=== PATIENT | female | born 1965 | race Caucasian/White ===

== ENCOUNTER → 2017-04-27 13:37 | Outpatient (CLI) | payer MEDICARE, SELFPAY ==
--- NOTE | 2017-04-27 13:53 | XR_ITS ---
XR wrist LT 2V HISTORY: ITS.REASON: WRIST PAIN ORDERING PHYSICIAN: Gaye Wick PATIENT AGE: 51 years COMPARISON: None FINDINGS: AP and lateral views of the left wrist show no obvious fracture or dislocation. There are some minimal osteoarthritic changes of the first metacarpal carpal joint. No lytic changes apparent. IMPRESSION: Minimal osteoarthritic changes first metacarpal carpal joint otherwise negative
== END ==
PROVIDERS: PCP Emergency Medicine; Visit Provider Physical Medicine & Rehabilitation
DX: M25.532 Pain in left wrist (principal)
CPT/HCPCS: 73100

== ENCOUNTER 2017-05-12 11:25 | Outpatient (RCR) | payer MEDICARE, SELFPAY | END 2017-05-12 11:30 | disposition home or self-care (01) | LOC: OT 11:25 | PROVIDERS: Visit Provider Orthopaedic Surgery | DX: G56.03 Carpal tunnel syndrome, bilateral upper limbs (principal) | CPT/HCPCS: 97760 ==

== ENCOUNTER → 2017-06-13 08:07 | Outpatient (POV) | payer MEDICARE, SELFPAY | PROVIDERS: Family Provider Emergency Medicine; PCP Emergency Medicine; Visit Provider Specialist | DX: M79.642 Pain in left hand (principal); M79.641 Pain in right hand | CPT/HCPCS: 95886; 95910 ==

== ENCOUNTER → 2017-12-02 10:08 | Outpatient (CLI) | payer MEDICARE, SELFPAY ==
[2017-12-02 15:19] LABS: Amphetamine/Metha Screen,Urine Negative ng/mL (<1000); Barbiturates Screen,Urine Positive ng/mL (<200); Benzodiazepines Screen,Urine Negative ng/mL (<200); Cannabinoid Screen,Urine Negative ng/mL (<50); Cocaine Screen,Urine Negative ng/mL (<300); Methadone Screen,Urine Negative ng/mL (<300); Opiate Screen,Urine Positive ng/mL (<300); Phencyclidine Screen,Urine Negative ng/mL (<25)
== END ==
PROVIDERS: Visit Provider Nurse Practitioner Family
DX: Z79.899 Other long term (current) drug therapy (principal)
CPT/HCPCS: 80305

== ENCOUNTER → 2017-12-06 13:05 | Outpatient (CLI) | payer MEDICARE, SELFPAY ==
--- NOTE | 2017-12-06 13:08 | XR_ITS ---
EXAM: XR lumbar spine 2-3V HISTORY: Low back pain ITS.REASON: pain ORDERING PHYSICIAN: Angeli Malik PATIENT AGE: 52 years COMPARISON: None FINDINGS: Normal alignment. No fracture or dislocation. No lytic or blastic change. Minimal endplate hypertrophic changes are present at L2 L3 L4 and L5 with degenerative disc disease noted at L4-L5 and L5-S1 along with facet arthritic changes at L4-5 and L5-S1. There is minimal lumbar curvature convex left and mild sclerosis of left SI joint superiorly IMPRESSION: Lumbar spondylosis with degenerative disc disease and facet arthritic change
== END ==
PROVIDERS: PCP Emergency Medicine; Visit Provider Nurse Practitioner Family
DX: M54.42 Lumbago with sciatica, left side (principal)
CPT/HCPCS: 72100

== ENCOUNTER → 2017-12-16 14:14 | Outpatient (CLI) | payer MEDICARE, SELFPAY ==
--- NOTE | 2017-12-16 14:16 | MR_ITS ---
MR lumbar spine wo con, MR 3-d myelogram/MRCP Ordering Physician: Angeli Malik Patient Age: 52 years: Female HISTORY: ITS.REASON: back pain Bilateral leg pain. Left leg worse. two previous discectomies 2015 2016. TECHNIQUE: MRI lumbar spine without contrast as ordered. No IV contrast utilized in this post discectomy patient Sagittal STIR, T1, T2, axial T1 and T2. On 1.5T Siemens wide bore MRI. 3-D MR myelogram image set obtained & performed on MRI workstation. Additional sagittal thin section T2 weighted dataset obtained from this latter acquisition as well (---76 CPT) COMPARISON :Prior MRI June 10, 2016 & January 2015 FINDINGS: Vertebral bodies appear intact.. There is normal alignment. The spinal cord ends at the L1 level. Images begins at T11.. T11-T12: Unremarkable. L1-2. Disc maintained. Mild facet hypertrophy. L2-L3: Disc desiccation with mild diffuse bulging disc along with facet and ligamentumhypertrophy.. Bilateral foraminal encroachment: moderate on right and mild to the left. Mild narrowing of central canal-facet hypertrophy most notable indenting right posterior aspect of the thecal sac more so than left.. L3-L4: Mild /moderate diffuse disc bulge with disc bulge most pronounced towards right foramen. Facet and ligamentum flavum hypertrophy . Moderate Right foraminal narrowing/& encroachment, more so than the mild left left foraminal narrowing. Borderline/mild central canal stenosis. L4-5: Disc space narrowing. Mild diffuse disc bulge along with moderate facet and ligamentum hypertrophyWhich narrow the thecal sac posteriorly.. Correlation features yields borderline/mild central canal stenosis &bilateral lateral recess narrowing. . . L5-S1: Presume interval discectomy to the left at L5/S1. The Previous prominent focal disc herniation is no longer evident.. There is still some posterior endplate hypertrophy encroach upon the left neural foramen along with minimal residual disc bulge to the left , but the major focal disc protrusion/herniation is been removed.. Mild residual encroachment upon the right foramen is seen on sagittal images due to the above features. Would also note that there is now post discectomy disc space narrowing L5/S1--this is most pronounced to the left & is associated with notable reactive endplate changes at inferior L5 vertebra & superior S1, about the narrowed disc.. At L5 this increased bone signal extends back to the left pedicle, sagittal image 14. Cortex remains well maintained & I see no additional features. Additional soft tissue density seen here to the left recess, left paracentral region which appear to effaces the left anterior/lateral aspect thecal sac.-Somewhat similar similar to the 2017 MR exam.. ... Presumably this primarily reflects post discectomy epidural fibrosis, but postcontrast imaging would be required to confirm such. There does appear to be additional facet hypertrophy adding to the density here-both of these features best seen on axial image 40. The facet hypertrophy also slightly encroaches upon the left recess & entry of left foramen superiorly, sagittal slice 13.. (. If left S1 or S2 particular symptoms persist follow-up postcontrast imaging may be of benefit to further evaluate) . Of finally note mild dilatation along with possible scant fluid about the left S1 nerve root as it passes towards and into the foramen. Nonspecific but seen on axial finally images 3-D MR myelogram shows a similar pattern to previous 2017 study. There is the broad area of indentation upon the left aspect of thecal sac beginning at L5/S1 and continuing up to the L4/5 level. At L3-4 and L2/3 there is indentation upon the thecal sac more evident on right, due to the posterior element hypertrophy. IMPRESSION: 1.. L5/S1.
== END ==
PROVIDERS: PCP Emergency Medicine; Visit Provider Nurse Practitioner Family
DX: M54.5 Low back pain (principal)
CPT/HCPCS: 72148; 76376

== ENCOUNTER → 2018-07-26 14:02 | Outpatient (CLI) | payer MEDICARE, SELFPAY ==
--- NOTE | 2018-07-26 14:06 | CT_ITS ---
CT Temporal bone Without INDICATION: ITS.REASON: CENTRAL PERFORATION OF TYMPANIC MEMBRANE OF RT EAR ORDERING PHYSICIAN: Haven Fox MD PATIENT AGE: 52 years COMPARISON: None TECHNIQUE: Thin section axial images are obtained without contrast. Sagittal and coronal reformatted images are reviewed as well. All CT scans at the facility use one or more dose reduction, viz: automated exposure control, ma/kV adjustment per patient size (including targeted exams where dose is matched to indication, i.e. head), or iterative reconstruction technique. FINDINGS: There is opacification of the right mastoid sinus with some sclerosis of the mastoid bony septa consistent with chronic mastoiditis. There is some increased density in the epitympanic and on the right. There is irregularity of the bony cortex of the inferior aspect of the mastoid sinuses which is inferior to the external auditory canal. Has the patient had prior surgery? If not then, osteomyelitis of the mastoid region here is a consideration. This cortical irregularity extends anterior to the temporomandibular condylar fossa. The temporomandibular joint space is shallow on the right. There are postsurgical changes of the right mandibular condyle and flattening of the right ventricular condyle head. There is widening of the temporomandibular joint space. There is some increased soft tissue density in the epitympanic region however, the scutum does not appear eroded. The middle ear ossicles appear intact. There is an air-fluid level in left maxillary sinus. There is been prior right submandibular surgery. The mandible is incompletely imaged on the right. IMPRESSION: 1. The findings are compatible with chronic right-sided mastoiditis. There is cortical irregularity of the petrous bone in the right mastoid region inferior to the external auditory canal. If there has not been prior surgery in this region then, chronic osteomyelitis is a consideration. 2. Partial epitympanic opacification without evidence of scutal erosion. 3. Postsurgical changes of the right mandible with shallow right TMJ fossa and flattening of the right mandibular condyle
== END ==
PROVIDERS: PCP Emergency Medicine; Visit Provider Otolaryngology
DX: H72.01 Central perforation of tympanic membrane, right ear (principal)
CPT/HCPCS: 70480

== ENCOUNTER → 2019-04-20 13:49 | Outpatient (CLI) | payer MEDICARE, SELFPAY ==
[2019-04-20 14:03] LABS: Basophils # 0.1 K/mm3 (0-0.2); Basophils % 0.6 % (0.1-2.0); Eosinophils # 0.1 K/mm3 (0.0-0.4); Eosinophils % 1.1 % (0.1-12.0); Hematocrit 37.7 % (37.0-47.0); Hemoglobin 12.2 g/dL (12.2-16.2); Lymphocytes # 1.1 K/mm3 (0.7-4.5); Lymphocytes % 14.5 % (10-50); Mean Corpuscular HGB Conc 32.3 g/dL (31.8-35.4); Mean Corpuscular Volume 102.4 fl (81-99); Monocytes # 0.6 K/mm3 (0.1-1.0); Monocytes % 7.3 % (1.7-9.3); Neutrophils # 5.8 K/mm3 (1.8-7.8); Neutrophils % 76.5 % (37.0-80.0); Platelet Count 316 K/mm3 (142-424); Red Blood Count 3.68 M/mm3 (4.20-5.40); Red Cell Distribution Width 13.1 % (11.5-17.5); White Blood Count 7.5 K/mm3 (4.8-10.8)
[2019-04-20 14:08] LABS: Alanine Aminotransferase 16 U/L (12-78); Albumin Level 4.3 g/dl (3.5-5.0); Albumin/Globulin Ratio 1.5 (1.1-1.8); Alkaline Phosphatase 62 U/L (38-126); Anion Gap 11.2 mEq/L (5-15); Aspartate Amino Transferase 30 U/L (14-36); Bilirubin,Total 0.2 mg/dl (0.2-1.3); Blood Urea Nitrogen 20 mg/dl (7-17); Calcium 10.2 mg/dl (8.4-10.2); Carbon Dioxide 26 mmol/L (22.0-30.0); Chloride 101 mmol/L (98-107); Chol/HDL Ratio 1.7 (1-3.5); Cholesterol 180 mg/dl (140-200); Estimated Glomerular Filt Rate 58 ml/min (>60); GFR (African American) 70 ML/MIN (>60); Globulin 2.9 g/dL (1.3-3.2); Glucose 95 mg/dl (74-100); HDL Cholesterol 106 mg/dl (40-60); Potassium 5.2 mmoL/L (3.5-5.1); Sodium 133 mmol/L (136-145); Total Protein,Serum 7.2 g/dl (6.3-8.2); Triglycerides 68 mg/dl (30-150); VLDL Cholesterol 14 mg/dL (0-40)
[2019-04-20 14:20] LABS: Direct LDL Cholesterol 72.51 mg/dL (100-129)
[2019-04-20 14:27] LABS: Free T4 (Free Thyroxine) 0.93 ng/dl (0.78-2.19)
[2019-04-20 14:41] LABS: Thyroid Stimulating Hormone 1.95 uIU/mL (0.465-4.68)
== END ==
PROVIDERS: Visit Provider Emergency Medicine
DX: R53.83 Other fatigue (principal); E03.9 Hypothyroidism, unspecified; E55.9 Vitamin D deficiency, unspecified
CPT/HCPCS: 80053; 80061; 82652; 84439; 84443; 85025

== ENCOUNTER → 2019-05-11 13:44 | Outpatient (CLI) | payer MEDICARE, SELFPAY ==
[2019-05-11 14:25] LABS: Blood Urea Nitrogen 19 mg/dl (7-17); Carbon Dioxide 23 mmol/L (22.0-30.0); Chloride 94 mmol/L (98-107); Estimated Glomerular Filt Rate 74 ml/min (>60); GFR (African American) 90 ML/MIN (>60); Glucose 74 mg/dl (74-100); Sodium 127 mmol/L (136-145)
[2019-05-12 09:52] LABS: Folate 7.2 ng/mL (>3.0); Vitamin B12 >2000 pg/mL (232-1245)
== END ==
PROVIDERS: Visit Provider Physician Assistant
DX: E87.1 Hypo-osmolality and hyponatremia (principal); E87.5 Hyperkalemia; R71.8 Other abnormality of red blood cells
CPT/HCPCS: 80048; 82607; 82746

== ENCOUNTER 2019-09-27 09:58 | Emergency (ER) | payer MEDICARE, SELFPAY ==
[2019-09-27 10:10] VITALS: BP 137/100; PULSE 89; RESP 18; TEMP 36.8; O2SAT 99; BMI 24.2
--- NOTE | 2019-09-27 10:17 | XR_ITS ---
PROCEDURE: XR HAND LT MIN 3V CLINICAL INDICATION: fall COMPARISON: No exams were available for comparison FINDINGS: No fracture or dislocation. No lytic or blastic change. There is normal mineralization. There are mild osteoarthritic changes 1st metacarpal-carpal joint with mild lateral subluxation of the 1st metacarpal Other findings:None. IMPRESSION: No acute findings. Dictated b Farhan Guidry MD 09/27/2019 12:35 Farhan Guidry MD in [place] 09/27/2019 12:35
[2019-09-27 10:20] VITALS: BP 137/100; PULSE 86; O2SAT 97
--- NOTE | 2019-09-27 10:28 | HMH.EDFALL ---
ED Disposition Clinical Impression: Sprain of hand, left Disposition: Home, Self-Care Condition on Discharge: Fair Instructions: How to Prevent Falls Additional Instructions: reviewed x-ray of the hand and do not see a fracture. Most likely You have a sprain. Plan is to provide a splint and advice rest ice elevation and anti-inflammatory medications. Please follow up with orthopedics if not better Prescriptions: Ibuprofen [Motrin 600mg Tablet] 600 mg PO Q6HP PRN #20 tab PRN Reason: Mild To Moderate Pain Transmission Status: Pending to [facility] Diclofenac Sodium [Voltaren 100gm Topical Gel] 1 applicatio TP Q4-6H PRN #100 gm PRN Reason: Moderate Pain Transmission Status: Pending to [facility] Referrals: Tim Arias MD [Primary Care Provider] - - Critical Care Critical Care Time: No Attestation: On , the high probability of a clinically significant, sudden or life threatening deterioration of the following system(s) required my full and direct attention, intervention and personal management. The time I documented below is in addition to time spent performing reported procedures but includes the following listed in this critical care notation. Medical Decision Making - Medical Records Medical records reviewed: Yes: I reviewed the patient's medical records. MR Comment: Patient is a 53-year-old female with the complaint that she fell couple of days ago she was going up a ramp and slipped and landed on her lefthand does have swelling in the hand she did keep it iced and elevated and hence the swelling is down she says she also hit her knee and has a bruise on the knee but that appears to be healing although she is not up-to-date on tetanus. I reviewed her x-ray and do not see a fracture. Most likely She has a sprain. Plan is to provide a splint and advice rest ice elevation and anti-inflammatory medications - [place] Inquiry Pt receiving controlled substance: No Vital Signs: 09/27/19 10:10 09/27/19 10:20 09/27/19 11:00 Temperature 98.3 F Temperature Source Oral Pulse Rate [Radial] 89 86 87 Respiratory Rate 18 Blood Pressure [Right Arm] 137/100 H 137/100 H 146/98 H Blood Pressure Mean [Right Arm] 112 112 114 Blood Pressure Source [Right Arm] Automatic Cuff Automatic Cuff Blood Pressure Position [Right Arm] Sitting Sitting Sitting 02 Sat by Pulse Oximetry 99 97 97 Oxygen Delivery Method Room Air Room Air Room Air Orders (Tests/Meds): ED MEDICATIONS Discontinued Medications Generic Name Dose Route Start Last Admin Trade Name Umer PRN Reason Stop Dose Admin Tetanus/Diphtheria Toxoids 0.5 ml 09/27/19 10:29 09/27/19 10:48 Tenivac 0.5ml Syringe IM 09/27/19 10:30 0.5 ml .ONCE ONE Administration ORDERS Category Date Time Status XR hand LT min 3V Stat Exams 09/27/19 10:17 Taken Fall HPI - General Chief Complaint: Fall Stated Complaint: ao fell and hurt left arm and wrist Time Seen by Provider: 09/27/19 10:23 Mode of Arrival: Ambulatory Source of Information: Patient, Spouse Limitations: No Limitations Description of Symptoms (Recalled from ER Triage Doc. by RN): Fell Tuesday. Left hand swelling, left knee pain. - History of Present Illness HPI Narrative: Patient is a 53-year-old female with the complaint that she fell couple of days ago she was going up a ramp and slipped and landed on her lefthand does have swelling in the hand she did keep it iced and elevated and hence the swelling is down she says she also hit her knee and has a bruise on the knee but that appears to be healing although she is not up-to-date on tetanus MD complaint: fall Onset (ago): day(s) Fall from: walking Fall witnessed: no Place fall occurred: home Loss of consciousness: none Prolonged down time: no Symptoms prior to fall: none Location of injury: other (left hand) Location of injury - extremities: Left: hand Severity: moderate Severity scale (
[2019-09-27 11:00] VITALS: BP 146/98; PULSE 87; O2SAT 97
--- NOTE | 2019-09-27 11:19 | PC.NURSE ---
back from xray
[2019-09-27 12:55] VITALS: BP 115/74; PULSE 78; RESP 16; TEMP 36.6; O2SAT 98
== END 2019-09-27 12:58 | disposition home or self-care (01) ==
PROVIDERS: Emergency Provider Emergency Medicine; PCP Emergency Medicine
DX: S63.502A Unspecified sprain of left wrist, initial encounter (principal); S61.412A Laceration without foreign body of left hand, initial encounter; W01.0XXA Fall on same level from slipping, tripping and stumbling without subsequent striking against object, initial encounter; Y92.89 Other specified places as the place of occurrence of the external cause; Z23 Encounter for immunization; E03.9 Hypothyroidism, unspecified; M79.7 Fibromyalgia; F41.8 Other specified anxiety disorders; E78.5 Hyperlipidemia, unspecified; I10 Essential (primary) hypertension; Z87.442 Personal history of urinary calculi; F17.210 Nicotine dependence, cigarettes, uncomplicated; Z88.1 Allergy status to other antibiotic agents; Z88.8 Allergy status to other drugs, medicaments and biological substances; Z79.899 Other long term (current) drug therapy
CPT/HCPCS: 29125; 73130; 90471; 90714; 99282; 99283

== ENCOUNTER → 2019-11-14 13:08 | Outpatient (CLI) | payer MEDICARE, SELFPAY ==
[2019-11-15 15:06] LABS: Covid-19 Nasal PCR Sendout Lex Not Detected
== END ==
PROVIDERS: PCP Emergency Medicine; Visit Provider Nurse Practitioner Family
DX: Z03.818 Encounter for observation for suspected exposure to other biological agents ruled out (principal)
CPT/HCPCS: U0004

== ENCOUNTER → 2019-12-06 11:30 | Outpatient (CLI) | payer MEDICARE, SELFPAY ==
[2019-12-06 13:34] LABS: Blood Urea Nitrogen 19 mg/dl (7-17); Estimated Glomerular Filt Rate 74 ml/min (>60); GFR (African American) 90 ML/MIN (>60)
== END ==
PROVIDERS: Visit Provider Emergency Medicine
DX: Z01.818 Encounter for other preprocedural examination (principal)
CPT/HCPCS: 36415; 82565; 84520

== ENCOUNTER → 2019-12-07 10:34 | Outpatient (CLI) | payer MEDICARE, SELFPAY ==
--- NOTE | 2019-12-07 10:35 | CT_ITS ---
PROCEDURE: CT SOFT TISSUE NECK W CON CLINICAL HISTORY: dysphonia Prior salivary gland surgery COMPARISON: CT NECKWO CT SOFT TISSUE NECK W/O CONT from 04/02/2013 TECHNIQUE: Oral Contrast: None IV Contrast: 75 mL Optiray 350 Axial images obtained with sagittal and coronal reformats. All CT scans at the facility use one or more dose reduction, viz: automated exposure control, ma/kV adjustment per patient size (including targeted exams where dose is matched to indication, i.e. head), or iterative reconstruction technique. FINDINGS: There is mucosal thickening of the ethmoid sinuses on the left. There is an air-fluid level in the both maxillary sinuses with mild mucosal thickening of the left maxillary sinus. The orbits have an unremarkable appearance. There is deformity of the body of the mandible and angle of the mandible on the right with multiple cortical screws in a bone plate at the anterior aspect of the body of the mandibular ramus on the right with what appears to represent a bone graft at the body of the mandible. This has a similar appearance on the previous exam. Prominent fatty tissue is present in the subcutaneous region in the right mandibular area as before with some surgical scarring noted. There are small nodes in the neck on both sides. No dominant adenopathy. The right parotid and right submandibular gland have been removed. The right sternocleidomastoid is smaller than the left side and could be due to partial resection. Upper thoracic images show centrilobular emphysema. Atherosclerotic changes are present involving the carotids on both sides The nasopharynx, uvula, hypopharynx oropharynx and epiglottis and glottic region and subglottic region have an unremarkable appearance. Unremarkable appearing thyroid gland. IMPRESSION: 1. Extensive postsurgical changes the on the right with prior removal of the parotid and submandibular gland and partial resection of the sternocleidomastoid as well as the right mandibular body resection. These findings are stable compared to the previous exam. 2. Overall no significant change with no acute finding. Previously noted fluid collection anterior to the left sternocleidomastoid is no longer apparent. No abscess evident. No adenopathy. Dictated by: Farhan Guidry MD 12/08/2019 09:12 Farhan Guidry MD in [place] 12/08/2019 09:12
== END ==
PROVIDERS: PCP Emergency Medicine; Visit Provider Emergency Medicine
DX: R49.0 Dysphonia (principal)
CPT/HCPCS: 70491; Q9967

== ENCOUNTER → 2020-05-15 08:57 | Outpatient (CLI) | payer MEDICARE, SELFPAY ==
--- NOTE | 2020-05-15 09:02 | FL_ITS ---
PROCEDURE: FL UPPER GI W AIR CLINICAL INDICATION: HOARSENESS COMPARISON: No exams were available for comparison TECHNIQUE: FLUOROSCOPY TIME : 1 minutes and 42 seconds FINDINGS: There was mild tracheal aspiration. The patient did have a cough reflux. Surgical clips are present in the thyroid bed. The esophagus has an unremarkable appearance. No annular constricting lesions, filling defects, or hiatal hernia is evident. The stomach and duodenum have an unremarkable appearance. No ulcer or mass evident. Prior lumbar surgery with inter pedicular screws at L5-S1. IMPRESSION: 1. Mild tracheal aspiration. 2. Otherwise unremarkable upper GI Dictated by: Farhan Guidry MD 05/15/2020 14:35 Farhan Guidry MD in [place] 05/15/2020 14:35
== END ==
PROVIDERS: PCP Emergency Medicine; Visit Provider Surgery
DX: R49.0 Dysphonia (principal)
CPT/HCPCS: 74246

== ENCOUNTER → 2020-06-24 11:08 | Outpatient (POV) | payer MEDICARE, SELFPAY | PROVIDERS: Visit Provider Otolaryngology | DX: Z00.00 Encounter for general adult medical examination without abnormal findings (principal) ==

== ENCOUNTER → 2020-09-02 14:01 | Outpatient (CLI) | payer MEDICARE, SELFPAY ==
[2020-09-02 14:46] LABS: Chloride 88 mmol/L (98-107); Potassium 5.1 mmoL/L (3.5-5.1); Sodium 123 mmol/L (136-145)
[2020-09-02 14:47] LABS: 25-OH Vitamin D, Total 35.7 ng/mL (30-100)
[2020-09-02 14:48] LABS: Blood Urea Nitrogen 12 mg/dl (7-17); Estimated Glomerular Filt Rate 74 ml/min (>60); GFR (African American) 90 ML/MIN (>60)
[2020-09-02 14:49] LABS: Alanine Aminotransferase 17 U/L (12-78); Albumin Level 4.3 g/dl (3.5-5.0); Albumin/Globulin Ratio 1.5 (1.1-1.8); Alkaline Phosphatase 81 U/L (38-126); Anion Gap 17.1 mEq/L (5-15); Aspartate Amino Transferase 33 U/L (14-36); Bilirubin,Total 0.4 mg/dl (0.2-1.3); Calcium 9.5 mg/dl (8.4-10.2); Carbon Dioxide 23 mmol/L (22.0-30.0); Chol/HDL Ratio 2.2 (1-3.5); Cholesterol 193 mg/dl (140-200); Globulin 2.8 g/dL (1.3-3.2); Glucose 91 mg/dl (74-100); HDL Cholesterol 89 mg/dl (40-60); Total Protein,Serum 7.1 g/dl (6.3-8.2); Triglycerides 114 mg/dl (30-150); VLDL Cholesterol 23 mg/dL (0-40)
[2020-09-02 14:59] LABS: Basophils % 0.5 % (0.1-2.0); Eosinophils # 0.2 K/mm3 (0.0-0.4); Hematocrit 37.8 % (37.0-47.0); Hemoglobin 12.5 g/dL (12.2-16.2); Lymphocytes # 1.4 K/mm3 (0.7-4.5); Lymphocytes % 16.4 % (10-50); Mean Corpuscular HGB Conc 33.1 g/dL (31.8-35.4); Mean Corpuscular Hemoglobin 31.2 pg (27.0-31.2); Mean Corpuscular Volume 94.5 fl (81-99); Mean Platelet Volume 7.8 fl (7.4-10.4); Monocytes # 0.7 K/mm3 (0.1-1.0); Monocytes % 8.1 % (1.7-9.3); Neutrophils # 6.1 K/mm3 (1.8-7.8); Platelet Count 354 K/mm3 (142-424); Red Blood Count 4.01 M/mm3 (4.20-5.40); Red Cell Distribution Width 12.3 % (11.5-17.5); White Blood Count 8.3 K/mm3 (4.8-10.8)
[2020-09-02 15:01] LABS: Direct LDL Cholesterol 80.82 mg/dL (100-129)
[2020-09-02 15:08] LABS: T4 (Thyroxine) 5.7 ug/dl (5.53-11.0)
[2020-09-02 15:35] LABS: Thyroid Stimulating Hormone 1.94 uIU/mL (0.465-4.68)
== END ==
PROVIDERS: Visit Provider Nurse Practitioner Family
DX: I10 Essential (primary) hypertension (principal); E03.9 Hypothyroidism, unspecified; E55.9 Vitamin D deficiency, unspecified
CPT/HCPCS: 80053; 80061; 82306; 84436; 84443; 85025

== ENCOUNTER → 2020-11-14 14:02 | Outpatient (CLI) | payer MEDICARE, SELFPAY ==
[2020-11-14 14:04] LABS: Adenovirus,PCR Not Detected (NotDetected); Bordetella Pertussis Not Detected (NotDetected); Chlamydophila Pneumoniae, PCR Not Detected (NotDetected); Coronavirus 19, PCR Not Detected (NotDetected); Coronavirus 229E Not Detected (NotDetected); Coronavirus NL63 Not Detected (NotDetected); Coronavirus OC43 Not Detected (NotDetected); Coronovirus HKU1,PCR Not Detected (NotDetected); Human Metapneumovirus Not Detected (NotDetected); Influenza A, PCR Not Detected (NotDetected); Influenza AH1, 2009 Not Detected (NotDetected); Influenza AH1, PCR Not Detected (NotDetected); Influenza AH3,PCR Not Detected (NotDetected); Influenza B, PCR Not Detected (NotDetected); Mycoplasma Pneumoniae, PCR Not Detected (NotDetected); Parainfluenza 1, PCR Not Detected (NotDetected); Parainfluenza 2, PCR Not Detected (NotDetected); Parainfluenza 3, PCR Not Detected (NotDetected); Parainfluenza 4, PCR Not Detected (NotDetected); Respiratory Syncytial Virus Not Detected (NotDetected); Rhinovirus/Enterovirus Not Detected (NotDetected)
== END ==
PROVIDERS: Visit Provider Family Medicine
DX: J02.9 Acute pharyngitis, unspecified (principal); R09.89 Other specified symptoms and signs involving the circulatory and respiratory systems; Z20.822 Contact with and (suspected) exposure to COVID-19; R05 Cough; R50.9 Fever, unspecified
CPT/HCPCS: 87486; 87581; 87632; 87798; C9803; U0003; U0005

== ENCOUNTER → 2021-02-18 17:20 | Outpatient (CLI) | payer MEDICARE, SELFPAY ==
[2021-02-18 17:22] LABS: Adenovirus,PCR Not Detected (NotDetected); Bordetella Pertussis Not Detected (NotDetected); Chlamydophila Pneumoniae, PCR Not Detected (NotDetected); Coronavirus 19, PCR Not Detected (NotDetected); Coronavirus 229E Not Detected (NotDetected); Coronavirus NL63 Not Detected (NotDetected); Coronavirus OC43 Not Detected (NotDetected); Coronovirus HKU1,PCR Not Detected (NotDetected); Human Metapneumovirus Not Detected (NotDetected); Influenza A, PCR Not Detected (NotDetected); Influenza AH1, 2009 Not Detected (NotDetected); Influenza AH1, PCR Not Detected (NotDetected); Influenza AH3,PCR Not Detected (NotDetected); Influenza B, PCR Not Detected (NotDetected); Mycoplasma Pneumoniae, PCR Not Detected (NotDetected); Parainfluenza 1, PCR Not Detected (NotDetected); Parainfluenza 2, PCR Not Detected (NotDetected); Parainfluenza 3, PCR Not Detected (NotDetected); Parainfluenza 4, PCR Not Detected (NotDetected); Respiratory Syncytial Virus Not Detected (NotDetected); Rhinovirus/Enterovirus Not Detected (NotDetected)
== END ==
PROVIDERS: Visit Provider Nurse Practitioner Family
DX: R05.9 Cough, unspecified (principal); Z20.822 Contact with and (suspected) exposure to COVID-19; R09.89 Other specified symptoms and signs involving the circulatory and respiratory systems
CPT/HCPCS: 87581; 87632; 87798; C9803; U0003; U0005

== ENCOUNTER → 2022-01-05 09:00 | Outpatient (CLI) | payer MEDICARE, SELFPAY ==
[2022-01-05 20:09] LABS: Basophils # 0.1 K/mm3 (0-0.2); Basophils % 0.8 % (0.1-2.0); Eosinophils % 0.1 % (0.1-12.0); Hematocrit 37.5 % (37.0-47.0); Hemoglobin 11.9 g/dL (12.2-16.2); Lymphocytes # 3.7 K/mm3 (0.7-4.5); Lymphocytes % 20.6 % (10-50); Mean Corpuscular HGB Conc 31.7 g/dL (31.8-35.4); Mean Corpuscular Hemoglobin 28.3 pg (27.0-31.2); Mean Corpuscular Volume 89.1 fl (81-99); Mean Platelet Volume 9.2 fl (7.4-10.4); Monocytes % 5.8 % (1.7-9.3); Neutrophils # 12.9 K/mm3 (1.8-7.8); Neutrophils % 72.7 % (37.0-80.0); Platelet Count 620 K/mm3 (142-424); Red Cell Distribution Width 14.9 % (11.5-17.5); White Blood Count 17.8 K/mm3 (4.8-10.8)
[2022-01-05 20:11] LABS: MANUAL DIFFERENTIAL MANUAL DIFFERENTIAL (MANUAL DIFF)
[2022-01-05 20:15] LABS: Alanine Aminotransferase 24 U/L (12-78); Albumin Level 3.6 g/dl (3.5-5.0); Albumin/Globulin Ratio 1.2 (1.1-1.8); Alkaline Phosphatase 211 U/L (38-126); Anion Gap 21.6 mEq/L (5-15); Aspartate Amino Transferase 34 U/L (14-36); Bilirubin,Total 0.4 mg/dl (0.2-1.3); Blood Urea Nitrogen 24 mg/dl (7-17); Calcium 9.3 mg/dl (8.4-10.2); Carbon Dioxide 22 mmol/L (22.0-30.0); Chloride 83 mmol/L (98-107); Chol/HDL Ratio 3.2 (1-3.5); Cholesterol 168 mg/dl (140-200); Estimated Glomerular Filt Rate 51 ml/min (>60); GFR (African American) 62 ML/MIN (>60); Glucose 75 mg/dl (74-100); HDL Cholesterol 52 mg/dl (40-60); Potassium 4.6 mmoL/L (3.5-5.1); Sodium 122 mmol/L (136-145); Total Protein,Serum 6.6 g/dl (6.3-8.2); Triglycerides 149 mg/dl (30-150); VLDL Cholesterol 30 mg/dL (0-40)
[2022-01-05 20:26] LABS: Direct LDL Cholesterol 75.93 mg/dL (100-129)
[2022-01-05 20:32] LABS: 25-OH Vitamin D, Total 13.1 ng/mL (30-100)
[2022-01-05 22:33] LABS: Lymphocytes % 22 % (10-50); Monocytes % 3 % (2-9); Neutrophils % 75 % (42-76); Total Cells Counted 100
[2022-01-05 22:34] LABS: RBC Morphology Normal
[2022-01-05 22:35] LABS: Platelet Estimate Moderate Increase
== END ==
PROVIDERS: PCP Student in an Organized Health Care Education/Training Program; Visit Provider Student in an Organized Health Care Education/Training Program
DX: R05.3 Chronic cough (principal); U09.9 Post COVID-19 condition, unspecified; I10 Essential (primary) hypertension; E55.9 Vitamin D deficiency, unspecified
CPT/HCPCS: 80053; 80061; 82306; 84443; 85007; 85025

== ENCOUNTER 2022-10-06 11:00 | Outpatient (RCR) | payer MEDICARE, SELFPAY ==
--- NOTE | 2022-09-23 11:43 | HMH.SLDYSPHA ---
Speech & Language Evaluation Speech/Language Dysphagia Evaluation Start: 09/23/22 11:08 Freq: ONCE Status: Active Protocol: Document 09/23/22 11:08 EDUARDOHOLLY (Rec: 09/23/22 11:43 MIRIAN [id number]) Dysphagia Assess/Goals/Plan Assessment Date of Evaluation: 09/23/22 Evaluation Type Initial Certification Assessment/Problems Dysphagia per MD order. Does Patient Qualify for Service Yes Qualify/Failure Comment Based on the results of the dysphagia evaluation, pt would benefit from skilled ST services to improve swallow function. Recommendations PHYSICIAN CERTIFICATION: The specified therapy services are required, authorized, and reviewed every 30 days. Pt will be seen # times/week 1 for # weeks 12 Diet Recommendations Free Water Protocol Liquid Type Recommendations Normal/Thin SL Swallow Guidelines High aspiration risk,Eat at slow rate,Oral Care Education, Oral care pre/post meals Dysphagia Swallow Precautions/Strategies Sitting Upright (90 deg),Small Bites and Sips,Alternate Liquids/Solids Place Food on Either side of Mouth Additional Consults Recommended Physical Therapy Comment Pt would benefit from physical therapy referral to address tightness in neck/shoulder that pt reports is bothering her. Plan Anticipate reaching STG in # weeks 8 Anticipate reaching LTG in # weeks 12 Pt/Guardian verbally ack understanding Yes of dx/prognosis/goals Pt/Guardian verbally ack understanding Yes of/consent to tx prog G -code Required No STG-Other Comment/Non-Specific 1. Pt will complete effortful swallow x10 independently in a therapy session. 2. Pt will complete effortful swallow x10 independently in a therapy session. 3. Pt will complete super- superglottic swallow x10 independently in a therapy session. 4. Pt will complete falsetto x10 independently in a therapy session. 5. Pt will report compliance with prescribed HEP. Penitentiary Goals Pt will be able to eat foods w/more Yes normal consi
== END 2022-10-06 12:10 | disposition home or self-care (01) ==
LOC: ST 11:00
PROVIDERS: PCP Nurse Practitioner Family; Visit Provider Otolaryngology
DX: R49.0 Dysphonia (principal); M87.88 Other osteonecrosis, other site; R13.10 Dysphagia, unspecified
CPT/HCPCS: 92526; 92610

== ENCOUNTER → 2022-11-17 23:17 | Outpatient (CLI) | payer MEDICARE, SELFPAY ==
[2022-11-17 20:02] LABS: Adenovirus,PCR Not Detected (NotDetected); Bordetella Pertussis Not Detected (NotDetected); Chlamydophila Pneumoniae, PCR Not Detected (NotDetected); Coronavirus 19, PCR Not Detected (NotDetected); Coronavirus 229E Not Detected (NotDetected); Coronavirus NL63 Not Detected (NotDetected); Coronavirus OC43 Not Detected (NotDetected); Coronovirus HKU1,PCR Not Detected (NotDetected); Human Metapneumovirus Not Detected (NotDetected); Influenza A, PCR Not Detected (NotDetected); Influenza AH1, 2009 Not Detected (NotDetected); Influenza AH1, PCR Not Detected (NotDetected); Influenza AH3,PCR Not Detected (NotDetected); Influenza B, PCR Not Detected (NotDetected); Mycoplasma Pneumoniae, PCR Not Detected (NotDetected); Parainfluenza 1, PCR Not Detected (NotDetected); Parainfluenza 2, PCR Not Detected (NotDetected); Parainfluenza 3, PCR Not Detected (NotDetected); Parainfluenza 4, PCR Not Detected (NotDetected); Respiratory Syncytial Virus Not Detected (NotDetected); Rhinovirus/Enterovirus Not Detected (NotDetected)
== END ==
PROVIDERS: PCP Nurse Practitioner Family; Visit Provider Nurse Practitioner Family
DX: R06.02 Shortness of breath (principal); R05.8 Other specified cough; Z72.0 Tobacco use
CPT/HCPCS: 87581; 87632; 87798